=== PATIENT | male | born 1965 | race African-American/Black ===

== ENCOUNTER 2020-04-29 18:33 | Inpatient (IN) | payer BC ==
--- NOTE | 2020-04-29 18:56 | ER Document Report ---
ED General - General Chief Complaint: Shortness Of Breath Stated Complaint: SHORTNESS OF BREATH Time Seen by Provider: 04/29/20 18:39 Primary Care Provider: CHRIS AGUIRRE MD [Primary Care Provider] - Follow up as needed - [facility] Notes: Chief complaint: Shortness of breath and near syncope History of present illness: 54 -year-old male for evaluation of dyspnea and near syncopal episode. This gentleman made a 10-hour automobile trip a couple weeks ago. He has been intermittently short of breath since then. Over the weekend he had a near syncopal episode. He saw his primary care physician today and was sent him for CT angiogram of the chest as an outpatient procedure. Radiologist is in call to inform me that patient has extensive bilateral PE and saddle embolus formation. Patient says he is intermittently had some vague tightness in his chest but currently has no pain and does not feel short of breath at rest. He denies hemoptysis. He says he has had 2 previous negative Covid test. He denies any fever or cough. No sputum production. No recent surgery or trauma. No lower extremity swelling or discomfort. Patient is not currently on any type of anticoagulation and has no known history of major bleeding related to any condition. Prior medical history is remarkable for diabetes mellitus type 2 and hypertension. 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 HENT: Negative for sore throat. Eyes: Negative for visual changes. Cardiovascular: As per HPI Respiratory: As per HPI h. Gastrointestinal: Negative for abdominal pain, vomiting or diarrhea. Genitourinary: Negative for dysuria. Musculoskeletal: Negative for back pain. Skin: Negative for rash. Neurological: Per HPI. 10 point ROS negative except as marked above and in HPI. Physical Exam - Vital signs Vitals: BP Pulse Ox 121/96 H 99 04/29/20 18:53 04/29/20 18:53 - Notes Notes: GENERAL: Well-developed well-nourished male approximately stated age appearing in no acute distress. SKIN: Good turgor no rashes. HEAD: Normocephalic atraumatic. EYES: PERRLA. EOMI. Conjunctivae and sclerae clear. EARS: CANALS AND TMS CLEAR. NOSE: CLEAR. MOUTH: Moist mucosa. Good dentition. No stridor or edema. No drooling. NECK: Supple. No masses or thyromegaly. No adenopathy. Carotids 2+ without bruits. No JVD. BACK: Symmetrical without tenderness. CHEST: Respirations unlabored. Breath sounds clear and symmetrical. HEART: Regular rhythm. No murmur gallop or rub. ABDOMEN: Soft nontender without masses, organomegaly or rebound. Bowel sounds normally active. No bruits. GENITALIA: Deferred. EXTREMITIES: No edema. No calf tenderness. Cap refill less than 1.5 seconds. Dorsalis pedis and posterior tibial pulses 3+ and symmetrical. NEUROLOGICAL: GCS 15. Alert and oriented x3. Normal gait. Fluent speech. Cranial nerves II through XII intact. Sensorimotor and cerebellar normal. Normal tone. PSYCHIATRIC: Appropriate affect. Course - Vital Signs Vital signs: Temp Pulse Resp BP Pulse Ox 97.9 F 85 16 121/96 H 99 04/29/20 19:01 04/29/20 19:01 04/29/20 19:01 04/29/20 19:01 04/29/20 19:03 - Laboratory Results Result Diagrams: 04/29/20 18:40 04/29/20 18:40 Laboratory Results Interpreted: 04/29/20 04/29/20 18:40 18:40 Hgb 12.2 L Hct 37.6 L Sodium 136.1 L Creatinine 1.30 H Est GFR (MDRD) Non-Af 57 L Critical Laboratory Results Reviewed: No Critical Results Attending or Supervising Physician who Reviewed Labs: RAYMUNDO CURTIS - Radiology Results Radiology Results Interpreted: 04/29/20 20:45 Bilat. PE on CTA chest Critical Radiology Results Reviewed: Yes Attending or Supervising Physician who Reviewed Radiology: RAYMUNDO CURTIS Discharge - Discharge Clinical Impression: Acute pulmonary embolism Qualifiers: Pulmonary embolism type: unspecified Acute cor pulmonale presence: without acute cor pulmonale Qualified Code(s): I26.99 - Other pulmonary embolism without acute cor pulmonale Condition: Good Disposition: ADMITTED INPATIENT Admitting Provider: [facility] Unit Admitted: Telemetry Referrals: CHRIS AGUIRRE MD [Primary Care Provider] - Follow up as needed
[2020-04-29 19:07] LABS: ABSOLUTE EOSINOPHILS # (AUTO) 0.1 10^3/uL (0.0-0.6); ABSOLUTE LYMPHOCYTES (AUTO) 1.4 10^3/uL (0.5-4.7); ABSOLUTE MONOCYTES (AUTO) 0.6 10^3/uL (0.1-1.4); ABSOLUTE NEUT (AUTO) 3.1 10^3/uL (1.7-8.2); BASOPHILS % (AUTO) 0.3 % (0-2); EOSINOPHILS % (AUTO) 2.5 % (0-6); HEMATOCRIT 37.6 % (37.9-51.0); HEMOGLOBIN 12.2 g/dL (13.5-17.0); LYMPHOCYTES % (AUTO) 26.9 % (13-45); MEAN CORPUSCULAR HEMOGLOBIN 27.3 pg (27.0-33.4); MEAN CORPUSCULAR HGB CONC 32.4 g/dL (32.0-36.0); MEAN CORPUSCULAR VOLUME 84 fl (80-97); MONOCYTES % (AUTO) 10.7 % (3-13); PLATELET COUNT 189 10^3/uL (150-450); RED BLOOD COUNT 4.46 10^6/uL (4.35-5.55); RED CELL DISTRIBUTION WIDTH 13.9 % (11.5-14.0); SEGMENTED NEUTROPHILS % (AUTO) 59.6 % (42-78); TOTAL CELLS COUNTED % (AUTO) 100 %; WHITE BLOOD COUNT 5.2 10^3/uL (4.0-10.5)
[2020-04-29 19:10] LABS: INTERNATIONAL RATION (INR) 1.16; PARTIAL THROMBOPLASTIN TIME 29.5 SEC (23.5-35.8)
[2020-04-29 19:15] LABS: ALBUMIN 4.4 g/dL (3.5-5.0); ALKALINE PHOSPHATASE 40 U/L (38-126); ANION GAP 7 (5-19); ASPARTATE AMINO TRANSFERASE 28 U/L (17-59); BILIRUBIN,DIRECT 0.2 mg/dL (0.0-0.4); BILIRUBIN,TOTAL 0.6 mg/dL (0.2-1.3); BLOOD UREA NITROGEN 20 mg/dL (7-20); CALCIUM 9.8 mg/dL (8.4-10.2); CARBON DIOXIDE 28 mmol/L (22-30); CHLORIDE 101 mmol/L (98-107); GLUCOSE 100 mg/dL (75-110); POTASSIUM 3.7 mmol/L (3.6-5.0); TOTAL PROTEIN 7.4 g/dL (6.3-8.2)
[2020-04-29] MEDS ORDERED: ENOXAPARIN SODIUM INJ 120 MG/0.8 ML DISP.SYRIN SUBCUT ONE (19:35)
[2020-04-29] MEDS ORDERED: ACETAMINOPHEN 325 MG TABLET PO PRN (22:23)
[2020-04-29] MEDS ORDERED: DEXTROSE 40% GEL 15 GM TUBE PO PRN ×2 (22:37)
[2020-04-29] MEDS ORDERED: DEXTROSE 50%-WATER 25 GM/50 ML DISP.SYRIN IV PRN ×2 (22:37)
[2020-04-29] MEDS ORDERED: GLUCAGON,HUMAN RECOMB 1 MG INJ IM PRN (22:37)
[2020-04-30 06:02] LABS: ABSOLUTE RETICS # 0.058 10^6/uL (0.028-0.122); HEMATOCRIT 36.8 % (37.9-51.0); MEAN CORPUSCULAR HEMOGLOBIN 27.5 pg (27.0-33.4); MEAN CORPUSCULAR HGB CONC 32.6 g/dL (32.0-36.0); MEAN CORPUSCULAR VOLUME 84 fl (80-97); PLATELET COUNT 186 10^3/uL (150-450); RED BLOOD COUNT 4.36 10^6/uL (4.35-5.55); RED CELL DISTRIBUTION WIDTH 13.8 % (11.5-14.0); RETICULOCYTE COUNT (AUTO) 1.33 % (0.66-2.85); WHITE BLOOD COUNT 4.7 10^3/uL (4.0-10.5)
[2020-04-30 06:08] LABS: ALBUMIN 4.1 g/dL (3.5-5.0); ALKALINE PHOSPHATASE 38 U/L (38-126); ANION GAP 9 (5-19); ASPARTATE AMINO TRANSFERASE 27 U/L (17-59); BILIRUBIN,DIRECT 0.2 mg/dL (0.0-0.4); BILIRUBIN,TOTAL 0.7 mg/dL (0.2-1.3); BLOOD UREA NITROGEN 16 mg/dL (7-20); CALCIUM 9.7 mg/dL (8.4-10.2); CARBON DIOXIDE 24 mmol/L (22-30); CHLORIDE 106 mmol/L (98-107); GLUCOSE 109 mg/dL (75-110); IRON(TIBC) 69.3 ug/dL (49-181); POTASSIUM 3.8 mmol/L (3.6-5.0); TOTAL PROTEIN 6.7 g/dL (6.3-8.2)
--- NOTE | 2020-04-30 07:00 | PDOC H&P ---
History of Present Illness Admission Date/PCP: 04/29/20 21:03 CHRIS AGUIRRE MD Patient complains of: Dizziness, shortness of breath, chest pain History of Present Illness: RAYMUNDO WIN is a 54 year old male The patient is not feeling well for about 2 weeks now. She has episodes with exertional shortness of breath. She had episodes with chest pain, sharp bilateral. He feels weak and has somewhat poor exercise tolerance. Couple days ago after walking in a forest he became very weak and dizzy and he thinks he passed out for a short period of time. He continued to have the symptoms he went to see his primary care provider. He was sent to the hospital for an outpatient CT pulmonary angiogram. He was found to have bilateral pulmonary emboli, he was sent over to the emergency department. He is hemodynamically stable. He maintains good oxygen saturation. He does not appear to be in any distress. Past Medical History Cardiac Medical History: Reports: Hyperlipidema, Hypertension Denies: DVT, Pulmonary Embolism Endocrine Medical History: Reports: Diabetes Mellitus Type 2 GI Medical History: Reports: Other - Colon polyps. He has frequent colonoscopies. Psychiatric Medical History: Denies: Depression Past Surgical History Past Surgical History: Reports: None Social History Lives with: Family Smoking Status: Never Smoker Electronic Cigarette use?: No Frequency of Alcohol Use: Occasional Hx Recreational Drug Use: No Hx Prescription Drug Abuse: No Family History Family History: Other - His sister has colon polyps Parental Family History Reviewed: Yes Children Family History Reviewed: Yes Sibling(s) Family History Reviewed.: Yes Medication/Allergy Allergies/Adverse Reactions: No Known Allergies Allergy (Unverified 04/29/20 18:56) Review of Systems Constitutional: PRESENT: weakness - Poor exercise tolerance Cardiovascular: PRESENT: chest pain - Some intermittent sharp bilateral chest pain, dyspnea on exertion Gastrointestinal: ABSENT: abdominal pain, diarrhea, nausea, vomiting Genitourinary: PRESENT: other - No urinary discomfort Integumentary: ABSENT: rash, wounds Neurological: ABSENT: abnormal gait, abnormal speech, confusion, dizziness, focal weakness, syncope Psychiatric: ABSENT: anxiety, depression, homidical ideation, suicidal ideation Endocrine: ABSENT: cold intolerance, heat intolerance, polydipsia, polyuria Physical Exam Vital Signs: Temp Pulse Resp BP Pulse Ox 98.6 F 94 16 143/86 H 97 04/29/20 22:55 04/29/20 22:55 04/29/20 22:55 04/29/20 22:55 04/29/20 22:55 Intake & Output 04/28/20 04/29/20 04/30/20 06:59 06:59 06:59 Intake Total 200 Balance 200 Weight 109.225 kg General appearance: PRESENT: no acute distress Head exam: PRESENT: atraumatic Eye exam: PRESENT: EOMI, PERRLA. ABSENT: conjunctival injection Ear exam: PRESENT: normal external ear exam Neck exam: PRESENT: full ROM. ABSENT: JVD Respiratory exam: PRESENT: clear to auscultation jemma. ABSENT: accessory muscle use Cardiovascular exam: PRESENT: RRR Pulses: PRESENT: normal radial pulses, normal femoral pulses, normal dorsalis pedis pul Vascular exam: PRESENT: normal capillary refill GI/Abdominal exam: PRESENT: distended - Nondistended, normal bowel sounds, soft, tenderness - Nontender Rectal exam: PRESENT: deferred Neurological exam: PRESENT: alert, oriented to person, oriented to place, oriented to time, oriented to situation, normal gait Psychiatric exam: PRESENT: appropriate affect, normal mood. ABSENT: homicidal ideation, suicidal ideation Skin exam: PRESENT: dry, intact, warm. ABSENT: cyanosis, rash Results Laboratory Results: 04/30/20 05:18 04/29/20 04/29/20 04/30/20 18:40 18:40 05:18 WBC 5.2 4.7 RBC 4.46 4.36 Hgb 12.2 L 12.0 L Hct 37.6 L 36.8 L MCV 84 84 MCH 27.3 27.5 MCHC 32.4 32.6 RDW 13.9 13.8 Plt Count 189 186 Seg Neutrophils % 59.6 Retic Count (auto) 1.33 Sodium 136.1 L Potassium 3.7 Chloride 101 Carbon Dioxide 28 Anion Gap 7 BUN 20 Creatinine 1.30 H Est GFR ( Amer) > 60 Glucose 100 Calcium 9.8 Total Bilirubin 0.6 AST 28 Alkaline Phosphatase 40 Total Protein 7.4 Albumin 4.4 04/29/20 04/30/20 23:23 05:18 Troponin I < 0.012 < 0.012 EKG Comments: Normal sinus rhythm, normal EKG. Assessment and Plan - Diagnosis (1) Acute pulmonary embolism Qualifiers: Pulmonary embolism type: unspecified Acute cor pulmonale presence: without acute cor pulmonale Qualified Code(s): I26.99 - Other pulmonary embolism without acute cor pulmonale Is this a current diagnosis for this admission?: Yes Plan: Continue anticoagulation with Lovenox now. Within 24 to 48 hours he can be converted to oral anticoagulant. He is hemodynamically stable. He is not hypoxic. No sign of distress. CT scan of the chest shows significant clot burden. Physical examination of the lower extremities not suggestive of DVT but still proceed with ultrasound. Echocardiogram. (2) Anemia Qualifiers: Anemia type: unspecified type Qualified Code(s): D64.9 - Anemia, unspecified Is this a current diagnosis for this admission?: Yes Plan: Monitor hemoglobin. Check stool for occult blood. Anemia studies. (4) Diabetes mellitus Qualifiers: Diabetes mellitus type: type 2 Diabetes mellitus [facility] insulin use: without [facility] use Diabetes mellitus complication status: without complication Qualified Code(s): E11.9 - Type 2 diabetes mellitus without complications Is this a current diagnosis for this admission?: Yes Plan: Diabetic diet. Monitor blood glucose. Correction dose insulin. Hold Metformin in the hospital. (6) Hypertension Qualifiers: Hypertension type: essential hypertension Qualified Code(s): I10 - Es sential (primary) hypertension Is this a current diagnosis for this admission?: Yes Plan: He is taking lisinopril/HCTZ at home. I am going to put this on hold considering the dizziness with walking and the syncopal episode.if needed blood pressure medication will be resumed. (7) Syncope Qualifiers: Syncope type: unspecified Qualified Code(s): R55 - Syncope and collapse Is this a current diagnosis for this admission?: Yes Plan: 2 days ago he had a brief syncopal episode. Most likely this was related to his pulmonary embolism. He is going to be on gambling monitor and echocardiogram will be done. Cardiac etiology seems to be unlikely. - Time Time Spent with patient: 35 or more minutes Anticipated Discharge Disposition: Home, Self Care Anticipated Discharge Timeframe: within 48 hours
[2020-04-30 07:14] LABS: APPEARANCE,URINE CLEAR; BILIRUBIN,URINE NEGATIVE (NEGATIVE); COLOR,URINE YELLOW; GLUCOSE, URINE NEGATIVE (NEGATIVE); KETONES,URINE NEGATIVE (NEGATIVE); PROTEIN,URINE NEGATIVE (NEGATIVE); URINE SPECIFIC GRAVITY 1.028
[2020-04-30] MEDS: INSULIN LISPRO 100 UNIT/ML 3 ML VIAL SUBCUT SCH ×3 (07:30→18:03)
[2020-04-30] MEDS: ENOXAPARIN SODIUM INJ 120 MG/0.8 ML DISP.SYRIN SUBCUT SCH ×2 (08:09→19:32)
--- NOTE | 2020-04-30 13:33 | RADIOLOGY REPORT (SQ) ---
EXAM DESCRIPTION: VENOUS BILATERAL LOWER IMAGES COMPLETED DATE/TIME: 04/30/2020 1:13 pm REASON FOR STUDY: pulmonary embolism, r/o dvt COMPARISON: None. TECHNIQUE: Dynamic and static pennington scale and color images acquired of both lower extremity venous sy stems. Selected spectral images acquired with additional compression and augmentation maneuvers. Imag es stored on PACS. LIMITATIONS: None. FINDINGS: RIGHT LEG COMMON FEMORAL AND FEMORAL: Normal phasicity, compression and augmentation. No visualized echogenic m aterial on pennington scale. No defects on color images. POPLITEAL: Decreased compressibility with intraluminal defect on grayscale evaluation. CALF VESSELS: Decreased compressibility in the posterior tibial and peroneal veins with filling defec t on grayscale evaluation. GSV AND SSV: Normal compression. No visualized echogenic material on pennington scale. No defects on color images. ANY DEEP VENOUS INSUFFICIENCY: Not evaluated. ANY EVIDENCE OF POPLITEAL CYST: No. OTHER: No other significant finding. LEFT LEG COMMON FEMORAL AND FEMORAL: Normal phasicity, compression and augmentation. No visualized echogenic m aterial on pennington scale. No defects on color images. POPLITEAL: Normal compression and augmentation. No visualized echogenic material on pennington scale. No de fects on color images. CALF VESSELS: Normal compression and augmentation. No visualized echogenic material on pennington scale. No defects on color images. GSV AND SSV: Normal compression. No visualized echogenic material on pennington scale. No defects on color images. ANY DEEP VENOUS INSUFFICIENCY: Not evaluated. ANY EVIDENCE POPLITEAL CYST: No. OTHER: No other significant finding. IMPRESSION: 1. Acute appearing DVT within the right popliteal and tibial veins. 2. No evidence of left lower extremity DVT or SVT. COMMENT: RESULTS GIVEN TO PATIENT'S NURSE AT THE TIME OF THE EXAM. TECHNICAL DOCUMENTATION: JOB ID: [id number] 2010 [employer]- All Rights Reserved Reading location - IP/workstation name: [email or web address]
--- NOTE | 2020-04-30 14:15 | XCELERA REPORT ---
[address] [address] Transthoracic Echocardiogram Report Name: RAYMUNDO WIN Age: 54 yrs Gender: Male : 1965 Patient Status: Inpatient Patient Location: [address] [place], [place] [address] Study Date: 04/30/2020 11:22 AM Height: 74 in Weight: 248 lb BSA: 2.4 m2 Procedure: A complete two-dimensional transthoracic echocardiogram was performed (2D, M-mode, spectral and color flow Doppler). The study was technically adequate with some images being suboptimal in quality. Reason For Study: pulmonary embolism Previous Evaluation: No previous studies were available. Ordering Physician: TRAV BURRELL Performed By: Aidee Prince Interpretation Summary The left ventricle is grossly normal size. Left ventricular systolic function is normal. The Ejection Fraction estimate is 55-60%. Doppler measurements suggest impaired left ventricular relaxation, which is associated with grade I/IV or mild diastolic dysfunction. No regional wall motion abnormalities noted. The right ventricle is mild to moderately dilated with mildly reduced systolic function. Ruff sign is absent. Mild TR. No pulmonary hypertension present. Interatrial septum is mobile. Cannot assess for PFO/ASD. No prior studies for comparison. MMode/2D Measurements & Calculations RVDd: 3.5 cm LVIDd: 4.3 cm FS: 35.9 % Ao root diam: 3.5 cm IVSd: 1.5 cm LVIDs: 2.8 cm EDV(Teich): Ao root area: LVPWd: 1.3 cm 83.1 ml 9.7 cm2 ESV(Teich): LA dimension: 3.1 cm 28.4 ml EF(Teich): 65.8 % LVLd ap4: 9.7 cm SV(MOD-sp4): EDV(MOD-sp4): 80.0 ml 156.0 ml LVLs ap4: 8.5 cm ESV(MOD-sp4): 76.0 ml EF(MOD-sp4): 51.3 % Time Measurements Aortic R-R: 0.70 sec Aortic HR: 86.0 BPM Doppler Measurements & Calculations MV E max parish: MV P1/2t max parish: Ao V2 max: LV V1 max P.0 cm/sec 47.7 cm/sec 85.7 cm/sec 1.7 mmHg MV A max parish: MV P1/2t: 53.2 msec Ao max P.9 mmHgLV V1 mean P.1 cm/sec MVA(P1/2t): 4.1 cm2 Ao V2 mean: 0.81 mmHg MV E/A: 0.62 MV dec slope: 59.0 cm/sec LV V1 max: Ao mean P.4 cm/sec 262.5 cm/sec2 1.6 mmHg LV V1 mean: MV dec time: 0.18 sec Ao V2 VTI: 15.4 cm 40.0 cm/sec LV V1 VTI: 10.8 cm PA V2 max: TR max parish: MV P1/2t-pr_phl: 75.3 cm/sec 222.6 cm/sec 53.2 msec PA max PG: TR max P.8 mmHg 2.3 mmHg Left Ventricle The left ventricle is grossly normal size. Left ventricular systolic function is normal. The Ejection Fraction estimate is 55-60%. Doppler measurements suggest impaired left ventricular relaxation, which is associated with grade I/IV or mild diastolic dysfunction. No regional wall motion abnormalities noted. Right Ventricle The right ventricle is mild to moderately dilated. The right ventricular systolic function is mildly reduced. Atria The right atrium is normal in size. The left atrium is borderline dilated. Interatrial septum is mobile. Cannot assess for PFO/ASD. Mitral Valve The mitral valve is grossly normal. There is no evidence of mitral valve prolapse. There is no mitral valve stenosis. There is no mitral regurgitation noted. Aortic Valve The aortic valve is grossly normal. The aortic valve is trileaflet. There is no aortic valvular vegetation. There is no aortic valve stenosis. There is a trace amount of aortic regurgitation. Tricuspid Valve The tricuspid valve is not well visualized, but is grossly normal. There is no tricuspid valve prolapse. There is no tricuspid stenosis. There is a mild amount of tricuspid regurgitation. Pulmonic Valve The pulmonic valve is not well visualized. There is no vegetation on the pulmonic valve. There is no pulmonic valvular stenosis. There is no pulmonic valvular regurgitation. Great Vessels The aortic root is normal size. Mildly dilated ascending aorta. The inferior vena cava appeared small and collapsed with respiration (RAP 0-5 mmHg). Effusions There is no pericardial effusion. There is no pleural effusion. : TRAV BURRELL Antonio
--- NOTE | 2020-04-30 18:49 | EKG REPORT ---
SEVERITY:- ABNORMAL ECG - SINUS RHYTHM LEFT AXIS DEVIATION PROLONGED QT INTERVAL : Confirmed by: Warren Palacios 30-Apr-2020 18:49:18
--- NOTE | 2020-04-30 21:09 | PDOC PROGRESS REPORT ---
Subjective Date:: 04/30/20 Subjective:: Day 2 hospital stay 04/30/20. Patient was seen and examined at bedside. Feels o verall much better with no further episode of syncope and no shortness of breath. He is off oxygen saturating 99% blood pressure has been stable consistently no episodes of hypotension. He had a brief episode of 4-second of nonsustained V. tach and according to the nurse he felt a little "fluttering" briefly in his chest but he did not pass out and he did not complain of any chest pain or shortness of breath. I discussed his case with Dr. Pizano ICU avionics electronics technician who recommend to continue anticoagulation as he does not need any TPA or embolectomy right now with his stable pulmonary embolism. I also consulted [facility] pulmonary/critical care Dr. Ramirez who stated that despite his extensive clot burden and brief episode of V. tach it is very unlikely that he will benefit from TPA systemic or catheter directed or embolectomy. Will continue to monitor him for today and possibly discharge him tomorrow with Eliquis prescription. Per [facility] recommendations he will need to follow-up with his primary care within 1 week and then after a few weeks to determine if he is developing pulmonary hypertension from his pulmonary embolism. Venous Doppler ultrasound showed acute appearing DVT within the right popliteal and tibial veins. No evidence of DVT left lower extremity. Echocardiogram results showed normal LV systolic function. EF 55 to 60%. Mild grade 1 diastolic dysfunction. No regional wall motion abnormalities noted. RV is mild to moderately dilated with mildly reduced systolic function. Absent Ruff sign. Reason For Visit: ACUTE PULMONARY EMBOLISM Physical Exam Vital Signs: Temp Pulse Resp BP Pulse Ox 98.4 F 86 16 115/77 99 04/30/20 20:43 04/30/20 20:43 04/30/20 20:43 04/30/20 20:43 04/30/20 20:43 Intake & Output 04/29/20 04/30/20 05/01/20 06:59 06:59 06:59 Intake Total 460 1240 Balance 460 1240 Weight 109.225 kg 111.4 kg General appearance: PRESENT: no acute distress, cooperative Head exam: PRESENT: atraumatic, normocephalic Eye exam: PRESENT: EOMI, PERRLA Mouth exam: PRESENT: moist Neck exam: PRESENT: full ROM Respiratory exam: PRESENT: clear to auscultation jemma, symmetrical, unlabored Cardiovascular exam: PRESENT: RRR, +S1, +S2 Pulses: PRESENT: +2 pedal pulses bilateral GI/Abdominal exam: PRESENT: normal bowel sounds, soft. ABSENT: rebound, tenderness Extremities exam: PRESENT: full ROM Musculoskeletal exam: PRESENT: full ROM Neurological exam: PRESENT: alert, awake, oriented to person, oriented to place, oriented to time, oriented to situation Psychiatric exam: PRESENT: normal mood Skin exam: PRESENT: normal color Results Laboratory Results: 04/30/20 05:18 04/30/20 05:18 04/30/20 04/30/20 04/30/20 05:18 05:18 05:18 WBC 4.7 RBC 4.36 Hgb 12.0 L Hct 36.8 L MCV 84 MCH 27.5 MCHC 32.6 RDW 13.8 Plt Count 186 Retic Count (auto) 1.33 Sodium 138.8 Potassium 3.8 Chloride 106 Carbon Dioxide 24 Anion Gap 9 BUN 16 Creatinine 1.06 Est GFR ( Amer) > 60 Glucose 109 Calcium 9.7 Magnesium Iron 69.3 TIBC 337 % Saturation 21 Ferritin 720.00 H Total Bilirubin 0.7 AST 27 Alkaline Phosphatase 38 Total Protein 6.7 Albumin 4.1 Vitamin B12 353.0 Folate 17.10 TSH 3.56 Urine Color Urine Appearance Urine pH Ur Specific [place] Urine Protein Urine Glucose (UA) Urine Ketones Urine Blood Urine RBC (Auto) 04/30/20 04/30/20 05:18 06:26 WBC RBC Hgb Hct MCV MCH MCHC RDW Plt Count Retic Count (auto) Sodium Potassium Chloride Carbon Dioxide Anion Gap BUN Creatinine Est GFR ( Amer) Glucose Calcium Magnesium 2.0 Iron TIBC % Saturation Ferritin Total Bilirubin AST Alkaline Phosphatase Total Protein Albumin Vitamin B12 Folate TSH Urine Color YELLOW Urine Appearance CLEAR Urine pH 5.0 Ur Specific [place] 1.028 Urine Protein NEGATIVE Urine Glucose (UA) NEGATIVE Urine Ketones NEGATIVE Urine Blood NEGATIVE Urine RBC (Auto) 1 04/29/20 04/30/20 04/30/20 23:23 05:18 12:37 Troponin I < 0.012 < 0.012 < 0.012 Impressions: Venous Doppler Study 04/30/20 07:00 IMPRESSION: 1. Acute appearing DVT within the right popliteal and tibial veins. 2. No evidence of left lower extremity DVT or SVT. Assessment and Plan - Diagnosis (1) Acute pulmonary embolism Qualifiers: Pulmonary embolism type: unspecified Acute cor pulmonale presence: without acute cor pulmonale Qualified Code(s): I26.99 - Other pulmonary embolism without acute cor pulmonale Is this a current diagnosis for this admission?: Yes Plan: -Came in due to 1 episode of syncope 2 days prior to admission -according to the patient he went on [address] 2 weeks prior -CTA of chest showed emboli in the main pulmonary artery and in the upper and lower lobe branches. There is a consider bowel clot burden. There is no evidence of right ventricular strain. -Patient is hemodynamically stable with normal blood pressure not requiring oxygen support. -This is likely provoked PE -Therapeutic Lovenox plan to switch to Eliquis 10 mg twice a day for 7 days and then 5 mg twice daily for a minimum of 3 to 6 months. -Discussed his case with [facility] and was able to speak to Dr. Ramirez pulmonary critical care since I was concerned with his 1 episode of 4 seconds of V. tach. She recommended to continue anticoagulation as he is otherwise hemodynamically stable and there is very little benefit according to literature of doing thrombolytics on a stable patient. However she did recommend that a repeat echo should be done after couple of weeks to assess development of pulmonary hypertension from his extensive PE. -Work-up for hypercoagulable state can be done as an outpatient at the discretion of his primary care physician. (2) Acute DVT of right tibial vein Is this a current diagnosis for this admission?: Yes Plan: -Per venous Doppler he has a right popliteal and tibial vein DVT -Continue anticoagulation with Lovenox then will switch to Eliquis (3) Nonsustained paroxysmal ventricular tachycardia Is this a current diagnosis for this admission?: Yes Plan: Had about 4 seconds of nonsustained V. tach on telemetry blood pressure remained stable. -Echo result reviewed which showed normal EF and diastolic dysfunction, mild to moderate RV dilatation. No regional wall motion abnormalities. -Continue to monitor. 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 Monitor blood glucose. Correction dose insulin. Hold Metformin in the hospital. (5) Hypertension Qualifiers: Hypertension type: essential hypertension Qualified Code(s): I10 - Essential (primary) hypertension Is this a current diagnosis for this admission?: Yes Plan: -I have resumed his lisinopril hydrochlorothiazide (6) Syncope Qualifiers: Syncope type: unspecified Qualified Code(s): R55 - Syncope and collapse Is this a current diagnosis for this admission?: Yes Plan: 2 days ago he had a brief syncopal episode. Most likely this was related to his pulmonary embolism. -Had a brief episode of nonsustained V. tach in telemetry he remained stable during this brief episode but did note mild fluttering in his chest. -This is still likely from his pulmonary embolism we will continue to monitor him. - Time Time Spent with patient: 35 or more minutes Medications reviewed and adjusted accordingly: Yes Anticipated Discharge Disposition: Home, Self Care Anticipated Discharge Timeframe: within 24 hours
[2020-04-30] MEDS ORDERED: FENOFIBRATE NANOCRYSTALLIZED 145 MG TABLET PO SCH (22:00)
[2020-05-01] MEDS: INSULIN LISPRO 100 UNIT/ML 3 ML VIAL SUBCUT SCH ×2 (08:07→11:36)
[2020-05-01] MEDS ORDERED: HYDROCHLOROTHIAZIDE 12.5 MG TABLET PO SCH (10:00)
[2020-05-01] MEDS ORDERED: APIXABAN 5 MG TABLET PO SCH (10:00)
[2020-05-01] MEDS ORDERED: (PENDING PHARMACY ID) (Lisinopril/Hydrochlorothiazide [Lisinopril-Hctz 20-12.5 Mg Tab] 1 E PO SCH (10:00)
[2020-05-01] MEDS ORDERED: LISINOPRIL 10 MG TABLET PO SCH (10:00)
--- NOTE | 2020-05-01 10:06 | Progress Note ---
Provider Note Provider Note: After discussing this case with Dr. Reid it was determined that a cardiology consult is not needed any longer.
[2020-05-01 13:52] VITALS: BP 121/96
--- NOTE | 2020-05-02 20:03 | PDOC DISCHARGE SUMMARY ---
Impression - Admit/DC Date/PCP Admission Date/Primary Care Provider: 04/29/20 21:03 CHRIS AGUIRRE MD Discharge Date: 05/01/20 - Discharge Diagnosis (1) Acute pulmonary embolism Is this a current diagnosis for this admission?: Yes (2) Acute DVT of right tibial vein Is this a current diagnosis for this admission?: Yes (3) Nonsustained paroxysmal ventricular tachycardia Is this a current diagnosis for this admission?: Yes (4) Diabetes mellitus Is this a current diagnosis for this admission?: Yes (5) Hypertension Is this a current diagnosis for this admission?: Yes (6) Syncope Is this a current diagnosis for this admission?: Yes - Assessment Summary: (1) Acute pulmonary embolism Qualifiers: Pulmonary embolism type: unspecified Acute cor pulmonale presence: without acute cor pulmonale Qualified Code(s): I26.99 - Other pulmonary embolism without acute cor pulmonale Is this a current diagnosis for this admission?: Yes Plan: -Came in due to 1 episode of syncope 2 days prior to admission -according to the patient he went on [address] 2 weeks prior -CTA of chest showed emboli in the main pulmonary artery and in the upper and lower lobe branches. There is a consider bowel clot burden. There is no evidence of right ventricular strain. -Patient is hemodynamically stable with normal blood pressure not requiring oxygen support. -This is likely provoked PE -Therapeutic Lovenox plan to switch to Eliquis 10 mg twice a day for 7 days and then 5 mg twice daily for a minimum of 3 to 6 months. -Discussed his case with [facility] and was able to speak to Dr. Ramirez pulmonary critical care since I was concerned with his 1 episode of 4 seconds of V. tach. She recommended to continue anticoagulation as he is otherwise hemodynamically stable and there is very little benefit according to literature of doing thrombolytics on a stable patient. However she did recommend that a repeat echo should be done after couple of weeks to assess development of pulmonary hypertension from his extensive PE. -Work-up for hypercoagulable state can be done as an outpatient at the discretion of his primary care physician. (2) Acute DVT of right tibial vein Is this a current diagnosis for this admission?: Yes Plan: -Per venous Doppler he has a right popliteal and tibial vein DVT -Continue anticoagulation with Lovenox then will switch to Eliquis (3) Nonsustained paroxysmal ventricular tachycardia Is this a current diagnosis for this admission?: Yes Plan: Had about 4 seconds of nonsustained V. tach on telemetry blood pressure remained stable. -Echo result reviewed which showed normal EF and diastolic dysfunction, mild to moderate RV dilatation. No regional wall motion abnormalities. -Continue to monitor. 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 Monitor blood glucose. Correction dose insulin. Hold Metformin in the hospital. (5) Hypertension Qualifiers: Hypertension type: essential hypertension Qualified Code(s): I10 - Essential (primary) hypertension Is this a current diagnosis for this admission?: Yes Plan: -I have resumed his lisinopril hydrochlorothiazide (6) Syncope Qualifiers: Syncope type: unspecified Qualified Code(s): R55 - Syncope and collapse Is this a current diagnosis for this admission?: Yes Plan: 2 days ago he had a brief syncopal episode. Most likely this was related to his pulmonary embolism. -Had a brief episode of nonsustained V. tach in telemetry he remained stable during this brief episode but did note mild fluttering in his chest. -This is still likely from his pulmonary embolism we will continue to monitor him. - Additional Information Discharge Diet: As Tolerated Discharge Activity: Activity As Tolerated Referrals: CHRIS AGUIRRE MD [Primary Care Provider] - 05/01/20 10:15 am ( provider will contact patient with follow up ) Prescriptions: Apixaban [Eliquis 5 mg Tablet] 5 mg PO BID 90 Days #154 tablet Home Medications: Fenofibrate Nanocrystallized [Fenofibrate] 145 mg PO QHS 04/30/20 Lisinopril/Hydrochlorothiazide [Lisinopril-Hctz 20-12.5 mg Tab] 1 tab PO DAILY 04/30/20 Metformin HCl [Metformin HCl ER] 1,000 mg PO DAILY 04/30/20 Apixaban [Eliquis 5 mg Tablet] 5 mg PO BID 90 Days #154 tablet 05/01/20 History of Present Illiness History of Present Illness: RAYMUNDO WIN is a 54 year old male, The patient is not feeling well for about 2 weeks now. She has episodes with exertional shortness of breath. She had episodes with chest pain, sharp bilateral. He feels weak and has somewhat poor exercise tolerance. Couple days ago after walking in a forest he became very weak and dizzy and he thinks he passed out for a short period of time. He continued to have the symptoms he went to see his primary care provider. He was sent to the hospital for an outpatient CT pulmonary angiogram. He was found to have bilateral pulmonary emboli, he was sent over to the emergency department. He is hemodynamically stable. He maintains good oxygen saturation. He does not appear to be in any distress. Hospital Course Hospital Course: Day 2 hospital stay 04/30/20. Patient was seen and examined at bedside. Feels overall much better with no further episode of syncope and no shortness of breath. He is off oxygen saturating 99% blood pressure has been stable consistently no episodes of hypotension. He had a brief episode of 4-second of nonsustained V. tach and according to the nurse he felt a little "fluttering" briefly in his chest but he did not pass out and he did not complain of any chest pain or shortness of breath. I discussed his case with Dr. Pizano ICU helmet coverer who recommend to continue anticoagulation as he does not need any TPA or embolectomy right now with his stable pulmonary embolism. I also consulted [facility] pulmonary/critical care Dr. Ramirez who stated that despite his extensive clot burden and brief episode of V. tach it is very unlikely that he will benefit from TPA systemic or catheter directed or embolect juno. Will continue to monitor him for today and possibly discharge him tomorrow with Eliquis prescription. Per [facility] recommendations he will need to follow-up with his primary care within 1 week and then after a few weeks to determine if he is developing pulmonary hypertension from his pulmonary embolism. Venous Doppler ultrasound showed acute appearing DVT within the right popliteal and tibial veins. No evidence of DVT left lower extremity. Echocardiogram results showed normal LV systolic function. EF 55 to 60%. Mild grade 1 diastolic dysfunction. No regional wall motion abnormalities noted. RV is mild to moderately dilated with mildly reduced systolic function. Absent Ruff sign. D3 of hospital He remained stable with no episode of Vtach and syncope. he was discharged on Eliquis and advised to follow up with PCP. Physical Exam Vital Signs: Temp Pulse Resp BP Pulse Ox 98.1 F 84 18 121/96 H 99 05/01/20 13:43 05/01/20 13:43 05/01/20 13:43 05/01/20 13:43 05/01/20 13:43 Intake & Output 05/01/20 05/02/20 05/03/20 06:59 06:59 06:59 Intake Total 1440 Balance 1440 Weight 109.7 kg General appearance: PRESENT: no acute distress, cooperative Head exam: PRESENT: atraumatic, normocephalic Eye exam: PRESENT: EOMI, PERRLA Mouth exam: PRESENT: moist Neck exam: PRESENT: full ROM Respiratory exam: PRESENT: clear to auscultation jemma, symmetrical, unlabored Cardiovascular exam: PRESENT: RRR, +S1, +S2 Pulses: PRESENT: +2 pedal pulses bilateral GI/Abdominal exam: PRESENT: normal bowel sounds, soft. ABSENT: rebound, tenderness Extremities exam: PRESENT: full ROM Musculoskeletal exam: PRESENT: full ROM Neurological exam: PRESENT: alert, awake, oriented to person, oriented to place, oriented to time, oriented to situation Psychiatric exam: PRESENT: normal mood Skin exam: PRESENT: normal color Results Laboratory Results: WBC 4.7 10^3/uL (4.0-10.5) 04/30/20 05:18 RBC 4.36 10^6/uL (4.35-5.55) 04/30/20 05:18 Hgb 12.0 g/dL (13.5-17.0) L 04/30/20 05:18 Hct 36.8 % (37.9-51.0) L 04/30/20 05:18 MCV 84 fl (80-97) 04/30/20 05:18 MCH 27.5 pg (27.0-33.4) 04/30/20 05:18 MCHC 32.6 g/dL (32.0-36.0) 04/30/20 05:18 RDW 13.8 % (11.5-14.0) 04/30/20 05:18 Plt Count 186 10^3/uL (150-450) 04/30/20 05:18 Lymph % (Auto) 26.9 % (13-45) 04/29/20 18:40 [place] % (Auto) 10.7 % (3-13) 04/29/20 18:40 Eos % (Auto) 2.5 % (0-6) 04/29/20 18:40 Baso % (Auto) 0.3 % (0-2) 04/29/20 18:40 Reticulocyte # 0.058 10^6/uL (0.028-0.122) 04/30/20 05:18 Absolute Neuts (auto) 3.1 10^3/uL (1.7-8.2) 04/29/20 18:40 Absolute Lymphs (auto) 1.4 10^3/uL (0.5-4.7) 04/29/20 18:40 Absolute Monos (auto) 0.6 10^3/uL (0.1-1.4) 04/29/20 18:40 Absolute Eos (auto) 0.1 10^3/uL (0.0-0.6) 04/29/20 18:40 Absolute Basos (auto) 0.0 10^3/uL (0.0-0.2) 04/29/20 18:40 Seg Neutrophils % 59.6 % (42-78) 04/29/20 18:40 Retic Count (auto) 1.33 % (0.66-2.85) 04/30/20 05:18 PT 15.0 SEC (11.4-15.4) 04/29/20 18:40 INR 1.16 04/29/20 18:40 APTT 29.5 SEC (23.5-35.8) 04/29/20 18:40 Sodium 138.8 mmol/L (137-145) 04/30/20 05:18 Potassium 3.8 mmol/L (3.6-5.0) 04/30/20 05:18 Chloride 106 mmol/L (98-107) 04/30/20 05:18 Carbon Dioxide 24 mmol/L (22-30) 04/30/20 05:18 Anion Gap 9 (5-19) 04/30/20 05:18 BUN 16 mg/dL (7-20) 04/30/20 05:18 Creatinine 1.06 mg/dL (0.52-1.25) 04/30/20 05:18 Est GFR ( Amer) > 60 (>60) 04/30/20 05:18 Est GFR (MDRD) Non-Af > 60 (>60) 04/30/20 05:18 Glucose 109 mg/dL (75-110) 04/30/20 05:18 POC Glucose 97 mg/dL (70-110) 05/01/20 11:21 Hemoglobin A1c % 5.1 % (4.7-6.0) 04/30/20 05:18 Calcium 9.7 mg/dL (8.4-10.2) 04/30/20 05:18 Magnesium 2.0 mg/dL (1.6-2.3) 04/30/20 05:18 Iron 69.3 ug/dL (49-181) 04/30/20 05:18 TIBC 337 ug/dL (250-450) 04/30/20 05:18 % Saturation 21 % 04/30/20 05:18 Ferritin 720.00 ng/mL (17.9-464.0) H 04/30/20 05:18 Total Bilirubin 0.7 mg/dL (0.2-1.3) 04/30/20 05:18 Direct Bilirubin 0.2 mg/dL (0.0-0.4) 04/30/20 05:18 Neonat Total Bilirubin Not Reportable 04/30/20 05:18 Neonat Direct Bilirubin Not Reportable 04/30/20 05:18 Neonat Indirect Bili Not Reportable 04/30/20 05:18 AST 27 U/L (17-59) 04/30/20 05:18 ALT 20 U/L (<50) 04/30/20 05:18 Alkaline Phosphatase 38 U/L (38-126) 04/30/20 05:18 Troponin I < 0.012 ng/mL 04/30/20 12:37 Total Protein 6.7 g/dL (6.3-8.2) 04/30/20 05:18 Albumin 4.1 g/dL (3.5-5.0) 04/30/20 05:18 Vitamin B12 353.0 pg/mL (239-931) 04/30/20 05:18 Folate 17.10 ng/mL (>2.76) 04/30/20 05:18 TSH 3.56 uIU/mL (0.47-4.68) 04/30/20 05:18 Urine Color YELLOW 04/30/20 06:26 Urine Appearance CLEAR 12/09/20 06:26 Urine pH 5.0 (5.0-9.0) 04/30/20 06:26 Ur Specific [place] 1.028 04/30/20 06:26 Urine Protein NEGATIVE mg/dL (NEGATIVE) 04/30/20 06:26 Urine Glucose (UA) NEGATIVE mg/dL (NEGATIVE) 04/30/20 06:26 Urine Ketones NEGATIVE mg/dL (NEGATIVE) 04/30/20 06:26 Urine Blood NEGATIVE (NEGATIVE) 04/30/20 06:26 Urine Nitrite (Reflex) NEGATIVE (NEGATIVE) 04/30/20 06:26 Urine Bilirubin NEGATIVE (NEGATIVE) 04/30/20 06:26 Urine Urobilinogen 4.0 mg/dL (<2.0) H 04/30/20 06:26 Leukocyte Esterase Rfl NEGATIVE (NEGATIVE) 04/30/20 06:26 Urine RBC (Auto) 1 /HPF 04/30/20 06:26 Urine WBC (Reflex) 1 /HPF 04/30/20 06:26 Squamous Epi Cells Auto <1 /HPF 04/30/20 06:26 Urine Mucus (Auto) RARE /LPF 04/30/20 06:26 Urine Ascorbic Acid 20 (NEGATIVE) H 04/30/20 06:26 Stool Occult Blood NEGATIVE (NEGATIVE) 05/01/20 06:52 04/29/20 04/30/20 04/30/20 23:23 05:18 12:37 Troponin I < 0.012 < 0.012 < 0.012 Impressions: Venous Doppler Study 04/30/20 07:00 IMPRESSION: 1. Acute appearing DVT within the right popliteal and tibial veins. 2. No evidence of left lower extremity DVT or SVT. Plan Plan of Treatment: - discharged on eliis - .up with PCP Stroke Is this a Stroke Patient?: No Acute Heart Failure Is this a Heart Failure Patient?: No
== END 2020-05-01 14:24 | disposition home or self-care (01) | DRG 176 ==
LOC: ER 18:33 → EH 21:03 → 4N 22:46
PROVIDERS: ADMIT Internal Medicine; ATTEND Internal Medicine
DX: I26.99 Other pulmonary embolism without acute cor pulmonale (principal); I82.441 Acute embolism and thrombosis of right tibial vein; I47.2 Ventricular tachycardia; I10 Essential (primary) hypertension; E11.9 Type 2 diabetes mellitus without complications; R55 Syncope and collapse; Z86.010 Personal history of colon polyps; D64.9 Anemia, unspecified
CPT/HCPCS: 36415; 80053; 81001; 82272; 82607; 82728; 82746; 82962; 83036; 83540; 83550; 83735; 84443; 84484; 85025; 85027; 85045; 85610; 85730; 93005; 93010; 93306; 93970; 96372; 99285; J1650

== ENCOUNTER → 2020-04-29 | Outpatient (CLI) | payer BC ==
--- NOTE | 2020-04-29 18:46 | RADIOLOGY REPORT (SQ) ---
EXAM DESCRIPTION: CTA CHEST IMAGES COMPLETED DATE/TIME: 04/29/2020 6:21 pm REASON FOR STUDY: (I26.99)OTHER PULMONARY EMBOLISM WITHOUT ACUTE COR PULMONALE I26.99 OTHER PULMONA RY EMBOLISM WITHOUT ACUTE COR PULMONALE COMPARISON: None. TECHNIQUE: CT scan of the chest performed using helical scanning technique with dynamic intravenous contrast injection. Images reviewed with lung, soft tissue and bone windows. Reconstructed coronal and sagittal MPR images reviewed. Additional 3 dimensional post-processing performed to develop Maximal Intensity Projection images (CO P). All images stored on PACS. All CT scanners at this facility use dose modulation, iterative reconstruction, and/or weight based d osing when appropriate to reduce radiation dose to as low as reasonably achievable (ALARA). [facility]: Dose Right [facility]: CareDose [facility]: Dose Right [facility]: Teradose 4D [facility]: [employer] CONTRAST TYPE AND DOSE: contrast/concentration: Isovue 350.00 mmol/ml; Total Contrast Delivered: 75. 0 ml; Total Saline Delivered: 79.0 ml Contrast bolus optimized for the pulmonary arteries. Not diagnostic for the aorta. RENAL FUNCTION: Creatinine 1.3 RADIATION DOSE: CT Rad equipment meets quality standard of care and radiation dose reduction technLevel [employer] ues were employed. CTDIvol: 15.0 - 15.5 mGy. DLP: 645 mGy-cm. . LIMITATIONS: None. FINDINGS: LUNGS AND PLEURA: No masses, infiltrates, or pneumothorax. No pleural effusions or pleura l calcifications. AORTA AND GREAT VESSELS: No aneurysm. Contrast bolus not optimized for the aorta. HEART: No pericardial effusion. No significant coronary artery calcifications. PULMONARY ARTERIES: Emboli are present in the main pulmonary arteries and in the upper and lower lobe branches. There is a considerable clot burden. There is no evidence of right ventricular strain. HILAR AND MEDIASTINAL STRUCTURES: No identified masses or abnormal nodes. HARDWARE: None in the chest. UPPER ABDOMEN: No significant findings. Limited exam. THYROID AND OTHER SOFT TISSUES: No masses. No adenopathy. BONES: No acute or significant finding. 3D MIPS: Confirm above findings. OTHER: No other significant finding. IMPRESSION: Extensive pulmonary emboli as described. COMMENT: Pertinent findings on the imaging study reported as a CRITICAL RESULT Fidelina CURTIS MD at18:39 on 04/29/2020. Category of Critical Result: Pulmonary emboli. Quality ID # [id number]: Final reports with documentation of one or more dose reduction techniques (e.g., Au tomated exposure control, adjustment of the mA and/or kV according to patient size, use of iterative reconstruction technique) TECHNICAL DOCUMENTATION: JOB ID: [id number] 2010 [employer]- All Rights Reserved Reading location - IP/workstation name: [email or web address]
== END ==
LOC: RAD 17:28
PROVIDERS: ATTEND Internal Medicine
DX: I26.99 Other pulmonary embolism without acute cor pulmonale (principal); R07.2 Precordial pain
CPT/HCPCS: 71275